=== PATIENT | male | born 1950 | race Caucasian/White ===

== ENCOUNTER 2017-12-01 08:55 | Day surgery (SDC) | payer OTHER ==
[~2017-12-01] VITALS: Ht 185.4 cm; Wt 152.0 kg
[~2017-12-01 08:55] MED LIST: CEFAZOLIN 2 GM IVPB PREMIX 50 ML IV ONE
[2017-12-01] MEDS ORDERED: MEPERIDINE HCL/PF 25 MG/ML DISP.SYRIN IVP PRN (10:45)
[2017-12-01] MEDS ORDERED: LABETALOL 100 MG/ 20ML VIAL IVP PRN (10:45)
[2017-12-01] MEDS ORDERED: MIDAZOLAM HCL 5 MG/5 ML VIAL IVP PRN (10:45)
[2017-12-01] MEDS ORDERED: ONDANSETRON HCL 4 MG/2 ML VIAL IVP ONE ×2 (10:45→10:50)
[2017-12-01] MEDS ORDERED: fentaNYL CITRATE/PF 100 MCG/2 ML AMP IVP PRN (10:45)
[2017-12-01] MEDS ORDERED: NALOXONE HCL 0.4 MG/ML AMP (NARCAN) IVP ONE (10:45)
[2017-12-01] MEDS ORDERED: HYDROmorphone 1 MG INJ. 1 MG/ML AMPUL IVP PRN (10:45)
[2017-12-01] MEDS ORDERED: LIDOCAINE 1% 10 MG/ML, 20 ML MDV INJ ONE (10:50)
[2017-12-01] MEDS ORDERED: MORPHINE SULFATE 10MG/10ML PF AMP EP ONE (10:50)
[2017-12-01] MEDS ORDERED: LR 1,000 ML IV.SOLN IV ONE (10:50)
[2017-12-01] MEDS ORDERED: EPINEPHrine 1 MG/ML AMP IV ONE (10:50)
[2017-12-01] MEDS ORDERED: BUPIVACAINE /PF 0.5% 30 ML VIAL INJ ONE (10:50)
[2017-12-01] MEDS ORDERED: PROPOFOL 200MG/ 20ML VIAL (DIPRIVAN) IV ONE (10:50)
[2017-12-01] MEDS ORDERED: DEXAMETHASONE SOD PHOSPHATE 4 MG/ML VIAL IVP ONE (10:50)
[2017-12-01] MEDS ORDERED: MIDAZOLAM HCL 5 MG/ML VIAL (VERSED) IV ONE (10:50)
[2017-12-01] MEDS ORDERED: MEPERIDINE HCL/PF 100 MG/ML AMP IM ONE (10:50)
[2017-12-01] MEDS ORDERED: fentaNYL CITRATE 250 MCG/5 ML AMP IV ONE (10:50)
[2017-12-01] MEDS ORDERED: NS IRRIG SOLN 1000 ML IR ONE (10:50)
[2017-12-01] MEDS ORDERED: SEVOFLURANE 15 MIN GAS INH ONE (10:50)
[2017-12-01] MEDS ORDERED: NACL 0.9% 1,000 ML IV SCH (10:59)
[2017-12-01] MEDS ORDERED: HYDROcodone/ACETAMIN 5-325 MG TAB (NORCO/ VICODIN) PO PRN (11:00)
[2017-12-01] MEDS ORDERED: MORPHINE SULFATE 10 MG/ML VIAL IVP PRN (11:00)
[2017-12-01] MEDS ORDERED: DIPHENHYDRAMINE HCL 25 MG CAPSULE PO PRN (11:00)
[2017-12-01] MEDS ORDERED: ACETAMINOPHEN 325 MG TABLET PO PRN (11:00)
[2017-12-01] MEDS ORDERED: MEPERIDINE HCL/PF 25 MG/ML DISP.SYRIN ONE (11:15)
[2017-12-01] MEDS ORDERED: MEPERIDINE HCL/PF 25 MG/ML DISP.SYRIN IVP ONE (11:20)
[2017-12-01 12:30] VITALS: BP_SYST 117
== END 2017-12-01 13:10 | disposition home or self-care (01) ==
LOC: SDS 08:55 → SMU 08:55 → SDS 13:10
PROVIDERS: ATTEND Orthopaedic Surgery
DX: M23.221 Derangement of posterior horn of medial meniscus due to old tear or injury, right knee (principal); M23.200 Derangement of unspecified lateral meniscus due to old tear or injury, right knee; M94.261 Chondromalacia, right knee; Z79.899 Other long term (current) drug therapy; Z79.4 Long term (current) use of insulin; E11.9 Type 2 diabetes mellitus without complications; I10 Essential (primary) hypertension; E66.01 Morbid (severe) obesity due to excess calories; Z68.41 Body mass index [BMI] 40.0-44.9, adult
CPT/HCPCS: 82948; 82962; C1887; J0171; J0690; J1100; J2001; J2175; J2250; J2274; J2405; J2704; J3010; J3490; J7120

== ENCOUNTER 2018-09-08 13:50 | Emergency (ER) | payer OTHER ==
[~2018-09-08] VITALS: Ht 185.4 cm; Wt 131.5 kg
[2018-09-08 13:54] VITALS: BP_SYST 109
[2018-09-08] MEDS ORDERED: KETOROLAC TROMETHAMINE 60 MG/2 ML VIAL IM ONE (14:15)
[2018-09-08 15:05] VITALS: BP_SYST 105
== END 2018-09-08 15:05 | disposition home or self-care (01) ==
LOC: SED 13:50
DX: M54.30 Sciatica, unspecified side (principal); E78.00 Pure hypercholesterolemia, unspecified; E11.9 Type 2 diabetes mellitus without complications; I10 Essential (primary) hypertension
CPT/HCPCS: 96372; 99283; J1885

== ENCOUNTER 2019-05-24 23:06 | Inpatient (IN) | payer OTHER ==
[~2019-05-24] VITALS: Ht 188 cm; Wt 137.2 kg
[2019-05-24 23:18] VITALS: BP_SYST 138
[2019-05-24] MEDS ORDERED: FURO20TA4 PO (23:40)
[2019-05-24] MEDS ORDERED: TAMS0.4C96 PO (23:40)
[2019-05-24] MEDS ORDERED: LOSA1TAB43 PO (23:40)
[2019-05-24] MEDS ORDERED: BUPR300T46 PO (23:40)
[2019-05-24] MEDS ORDERED: GABA600T PO (23:40)
[2019-05-24] MEDS ORDERED: POTA8TAB4 PO (23:40)
[2019-05-24] MEDS ORDERED: BACL10TA PO (23:40)
[2019-05-24] MEDS ORDERED: ROSU20TA PO (23:40)
[2019-05-24] MEDS ORDERED: ATOR20TA64 PO (23:40)
[2019-05-24] MEDS ORDERED: ATEN50TA PO (23:40)
[2019-05-25] MEDS ORDERED: NACL 0.9% 1,000 ML IV ONE
[2019-05-25] MEDS ORDERED: MECLIZINE HCL 25 MG TABLET (ANITVERT) PO ONE
[2019-05-25 00:21] LABS: BASOPHILS # (AUTO) 0.1 K/uL (0.0-0.2); BASOPHILS % (AUTO) 0.8 % (0.0-2.0); EOSINOPHILS # (AUTO) 0.2 K/uL (0.0-0.4); EOSINOPHILS % (AUTO) 2.5 % (0.0-4.0); HEMATOCRIT 37.4 % (36-54); HEMOGLOBIN 12.4 g/dL (14.0-18.0); LYMPHOCYTES # (AUTO) 1.6 K/uL (1.0-5.5); LYMPHOCYTES % (AUTO) 18.7 % (20.5-51.5); MEAN CORPUSCULAR HEMOGLOBIN 29 pg (27-31); MEAN CORPUSCULAR HGB CONC 33 % (32-36); MEAN CORPUSCULAR VOLUME 86 fL (79.0-98.0); MONOCYTES # (AUTO) 0.6 K/uL (0.0-1.0); MONOCYTES % (AUTO) 7.5 % (1.7-9.3); NEUTROPHILS % (AUTO) 70.5 % (40.0-70.0); PLATELET COUNT (AUTO) 219 K/uL (130-430); RED BLOOD CELL COUNT(AUTO) 4.34 MIL/uL (4.2-6.2); RED CELL DISTRIBUTION WIDTH 13.6 % (9.0-15.0); WHITE BLOOD COUNT (AUTO) 8.5 K/uL (4.8-10.8)
[2019-05-25 00:30] LABS: CALCIUM 8.9 mg/dL (8.4-11.0); CREATININE 1.47 mg/dL (0.55-1.30); POTASSIUM 5.4 mmol/L (3.5-5.1)
[2019-05-25 00:44] LABS: ALBUMIN 3.2 g/dL (3.4-4.8); THYROID STIMULATING HORMONE 1.01 uIu/mL (0.36-3.74); TOTAL BILIRUBIN 0.3 mg/dL (0.0-1.0)
[2019-05-25 01:43] LABS: BILIRUBIN,URINE NEGATIVE (NEGATIVE); BLOOD, URINE NEGATIVE (NEGATIVE); CLARITY/URINE CLEAR (CLEAR); COLOR,URINE YELLOW (YELLOW); GLUCOSE,URINE 2+ (NEGATIVE); KETONES,URINE NEGATIVE (NEGATIVE); LEUKOCYTE ESTERASE ,URINE NEGATIVE (NEGATIVE); NITRITE, URINE POSITIVE (NEGATIVE); PH,URINE 5.5 (5.0-8.0); PROTEIN URINE TRACE (NEGATIVE); UROBILINOGEN,URINE 0.2 (0.2-1.0)
[2019-05-25 01:52] LABS: BACTERIA,URINE MANY /HPF (None Seen); RBC,URINE 0-3 /HPF (0-3)
[2019-05-25 01:53] LABS: BARBITURATE, URINE NEGATIVE (NEG <=200); BENZODIAZEPINE, URINE NEGATIVE (NEG <=150); CANNABINOID, URINE NEGATIVE (NEG <=50); COCAINE, URINE NEGATIVE (NEG <=150); METHAMPHETAMINES SCREEN,URINE NEGATIVE (NEG <=500); OPIATE, URINE NEGATIVE (NEG <=100); PHENCYCLIDINE SCREEN,URINE NEGATIVE (NEG <=25); UR TRICYCLIC ANTIDEPRESSANTS NEGATIVE (NEG <=300); URINE AMPHETAMINE NEGATIVE (NEG <=500); URINE METHADONE NEGATIVE (NEG <=200); URINE OXYCODONE SCREEN NEGATIVE (NEG <=100); URINE PROPOXYPHENE SCREEN NEGATIVE (NEG <=300)
[2019-05-25] MEDS ORDERED: cefTRIAXone 1 GM in D5W 50 ML IV ONE (02:15)
[2019-05-25] MEDS ORDERED: ACETAMINOPHEN 325 MG TABLET PO PRN (02:15)
[2019-05-25] MEDS ORDERED: ONDANSETRON HCL 4 MG/2 ML VIAL IVP PRN (02:15)
[2019-05-25] MEDS ORDERED: SODIUM POLYSTYRENE SULFONATE 15 GM/60 ML UDBTL PO ONE ×2 (02:15)
[2019-05-25 03:13] VITALS: BP_SYST 127
[2019-05-25] MEDS ORDERED: SODIUM POLYSTYRENE SULFONATE 15 GM/60 ML UDBTL PO SCH (03:15)
[2019-05-25] MEDS: cefTRIAXone 1 GM in D5W 50 ML IV SCH ×2 (03:31→09:46)
[2019-05-25] MEDS ORDERED: cefTRIAXone 1 GM IVPB PREMIX 50 ML IV ONE (03:35)
[2019-05-25 06:19] LABS: BASOPHILS # (AUTO) 0.1 K/uL (0.0-0.2); BASOPHILS % (AUTO) 0.7 % (0.0-2.0); EOSINOPHILS # (AUTO) 0.2 K/uL (0.0-0.4); EOSINOPHILS % (AUTO) 2.6 % (0.0-4.0); HEMATOCRIT 34.6 % (36-54); HEMOGLOBIN 11.5 g/dL (14.0-18.0); LYMPHOCYTES # (AUTO) 2.5 K/uL (1.0-5.5); LYMPHOCYTES % (AUTO) 28.9 % (20.5-51.5); MEAN CORPUSCULAR HEMOGLOBIN 29 pg (27-31); MEAN CORPUSCULAR HGB CONC 33 % (32-36); MEAN CORPUSCULAR VOLUME 87 fL (79.0-98.0); MONOCYTES # (AUTO) 0.8 K/uL (0.0-1.0); MONOCYTES % (AUTO) 9.1 % (1.7-9.3); NEUTROPHILS % (AUTO) 58.7 % (40.0-70.0); PLATELET COUNT (AUTO) 201 K/uL (130-430); RED BLOOD CELL COUNT(AUTO) 3.98 MIL/uL (4.2-6.2); RED CELL DISTRIBUTION WIDTH 13.7 % (9.0-15.0); WHITE BLOOD COUNT (AUTO) 8.6 K/uL (4.8-10.8)
[2019-05-25 06:23] LABS: ALBUMIN 2.9 g/dL (3.4-4.8); CALCIUM 8.8 mg/dL (8.4-11.0); CREATININE 1.35 mg/dL (0.55-1.30); TOTAL BILIRUBIN 0.3 mg/dL (0.0-1.0)
[2019-05-25] MEDS: INSULIN REGULAR, HUMAN 100 UNITS/ML, 10 ML VIAL (humuLIN R) SUBCUT PRN ×4 (06:35→21:36)
[2019-05-25 07:56] VITALS: BP_SYST 126
[2019-05-25 07:59] VITALS: BP_SYST 126
[2019-05-25] MEDS ORDERED: ROSUVASTATIN CALCIUM 5 MG/TAB (CRESTOR) PO SCH (09:00)
[2019-05-25] MEDS ORDERED: cefTRIAXone 1 GM in D5W 50 ML IV SCH (09:00)
[2019-05-25] MEDS: GABAPENTIN 300 MG CAPSULE PO SCH ×3 (09:46→21:32)
[2019-05-25] MEDS: TAMSULOSIN HCL 0.4 MG CAP PO SCH ×2 (09:47→21:29)
[2019-05-25] MEDS: FUROSEMIDE 20 MG TABLET PO SCH ×2 (09:47→21:32)
[2019-05-25] MEDS: BACLOFEN 10 MG TABLET PO SCH ×4 (09:47→21:32)
[2019-05-25] MEDS: ATENOLOL 50 MG TABLET (TENORMIN) PO SCH (09:48)
[2019-05-25 11:23] VITALS: BP_SYST 132
[2019-05-25 15:10] VITALS: BP_SYST 127
[2019-05-25 19:45] VITALS: BP_SYST 136
[2019-05-25] MEDS ORDERED: ATORVASTATIN 20 MG TABLET PO SCH (21:00)
[2019-05-26 00:10] VITALS: BP_SYST 126
[2019-05-26 04:33] LABS: BASOPHILS % (AUTO) 0.6 % (0.0-2.0); EOSINOPHILS # (AUTO) 0.3 K/uL (0.0-0.4); EOSINOPHILS % (AUTO) 3.3 % (0.0-4.0); HEMATOCRIT 36.1 % (36-54); LYMPHOCYTES # (AUTO) 2.6 K/uL (1.0-5.5); LYMPHOCYTES % (AUTO) 30.8 % (20.5-51.5); MEAN CORPUSCULAR HEMOGLOBIN 29 pg (27-31); MEAN CORPUSCULAR HGB CONC 33 % (32-36); MEAN CORPUSCULAR VOLUME 87 fL (79.0-98.0); MONOCYTES # (AUTO) 0.7 K/uL (0.0-1.0); MONOCYTES % (AUTO) 8.3 % (1.7-9.3); NEUTROPHILS # (AUTO) 4.8 K/uL (1.8-7.7); PLATELET COUNT (AUTO) 208 K/uL (130-430); RED BLOOD CELL COUNT(AUTO) 4.17 MIL/uL (4.2-6.2); RED CELL DISTRIBUTION WIDTH 13.5 % (9.0-15.0); WHITE BLOOD COUNT (AUTO) 8.4 K/uL (4.8-10.8)
[2019-05-26 04:39] LABS: ALBUMIN 2.9 g/dL (3.4-4.8); CALCIUM 8.9 mg/dL (8.4-11.0); CREATININE 1.3 mg/dL (0.55-1.30); POTASSIUM 4.5 mmol/L (3.5-5.1); TOTAL BILIRUBIN 0.3 mg/dL (0.0-1.0)
[2019-05-26] MEDS: INSULIN REGULAR, HUMAN 100 UNITS/ML, 10 ML VIAL (humuLIN R) SUBCUT PRN ×2 (06:15→11:57)
[2019-05-26 07:45] VITALS: BP_SYST 130
[2019-05-26] MEDS ORDERED: ENOXAPARIN SODIUM 40 MG/0.4 ML SYRINGE SUBCUT SCH (09:00)
[2019-05-26] MEDS ORDERED: GLIMEPIRIDE 2 MG TABLET PO SCH (09:00)
[2019-05-26] MEDS: TAMSULOSIN HCL 0.4 MG CAP PO SCH (09:14)
[2019-05-26] MEDS: ATENOLOL 50 MG TABLET (TENORMIN) PO SCH (09:15)
[2019-05-26] MEDS: FUROSEMIDE 20 MG TABLET PO SCH (09:15)
[2019-05-26] MEDS: GABAPENTIN 300 MG CAPSULE PO SCH (09:15)
[2019-05-26] MEDS: BACLOFEN 10 MG TABLET PO SCH ×2 (09:15→14:07)
[2019-05-26] MEDS: cefTRIAXone 1 GM in D5W 50 ML IV SCH (09:17)
[2019-05-26] MEDS ORDERED: CEPH-568 PO (11:12)
[2019-05-26] MEDS ORDERED: MECL12.584 PO (11:14)
[2019-05-26 11:19] VITALS: BP_SYST 114; BP_SYST 130
== END 2019-05-26 14:35 | disposition home or self-care (01) | DRG 690 ==
LOC: SED 23:06 → STU 05-25 02:13
PROVIDERS: ADMIT Internal Medicine; ATTEND Internal Medicine
DX: N39.0 Urinary tract infection, site not specified (principal); E86.0 Dehydration; H83.09 Labyrinthitis, unspecified ear; E11.40 Type 2 diabetes mellitus with diabetic neuropathy, unspecified; I10 Essential (primary) hypertension; N28.9 Disorder of kidney and ureter, unspecified; E87.5 Hyperkalemia; E11.65 Type 2 diabetes mellitus with hyperglycemia; N40.1 Benign prostatic hyperplasia with lower urinary tract symptoms; E66.01 Morbid (severe) obesity due to excess calories; G47.30 Sleep apnea, unspecified; F32.9 Major depressive disorder, single episode, unspecified; G89.29 Other chronic pain; M54.2 Cervicalgia; M54.9 Dorsalgia, unspecified; Z68.38 Body mass index [BMI] 38.0-38.9, adult; Z79.899 Other long term (current) drug therapy
CPT/HCPCS: 36415; 70450-TC; 72040-TC; 80053; 80307; 81000-TC; 82550-TC; 82962; 83036; 83605; 84443-TC; 84484; 85025; 85651-TC; 87040-TC; 87086; 93880; 96360; 97116-GP; 97530-GP; 99285; G0378; J0696; J1650; J1815; J7060; J8597

== ENCOUNTER 2022-11-08 10:05 | Inpatient (IN) | payer OTHER ==
[~2022-11-08] VITALS: Ht 185.4 cm; Wt 132.4 kg
[~2022-11-08 10:05] MED LIST changes: +ATEN50TA PO; +BACL10TA PO; +BUPR300T46 PO; -CEFAZOLIN 2 GM IVPB PREMIX 50 ML IV ONE; +CEPH-568 PO; +FURO20TA4 PO; +GABA600T PO; +LOSA1TAB43 PO; +MECL-225 PO; +POTA8TAB66 PO; +ROSU20TA2 PO; +TAMS0.4C96 PO
--- NOTE | 2022-11-08 10:15 | NUR ---
Placed in room 06 . Placed on awake overnight monitor, blood pressure machine and pulse oximeter. To gown for exam. Side rails up. Report given to AMARA MUNIZ.
[2022-11-08 10:16] VITALS: BP_SYST 130
--- NOTE | 2022-11-08 10:20 | NUR ---
ER DR. COBB AT THE BEDSIDE EXAMINING PT
[2022-11-08 10:49] LABS: BASOPHILS % (AUTO) 0.5 % (0.0-2.0); EOSINOPHILS # (AUTO) 0.2 K/uL (0.0-0.4); EOSINOPHILS % (AUTO) 3.3 % (0.0-4.0); HEMATOCRIT 36.9 % (36-54); HEMOGLOBIN 11.9 g/dL (14.0-18.0); LYMPHOCYTES # (AUTO) 1.5 K/uL (1.0-5.5); LYMPHOCYTES % (AUTO) 23.2 % (20.5-51.5); MEAN CORPUSCULAR HEMOGLOBIN 29 pg (27-31); MEAN CORPUSCULAR HGB CONC 32 % (32-36); MEAN CORPUSCULAR VOLUME 91 fL (79.0-98.0); MONOCYTES # (AUTO) 0.5 K/uL (0.0-1.0); MONOCYTES % (AUTO) 8.7 % (1.7-9.3); NEUTROPHILS % (AUTO) 64.3 % (40.0-70.0); PLATELET COUNT (AUTO) 195 K/uL (130-430); RED BLOOD CELL COUNT(AUTO) 4.05 MIL/uL (4.2-6.2); RED CELL DISTRIBUTION WIDTH 14.5 % (9.0-15.0); WHITE BLOOD COUNT (AUTO) 6.3 K/uL (4.8-10.8)
[2022-11-08 11:01] LABS: ANION GAP 5 (5-15); CALCIUM 8.6 mg/dL (8.4-11.0); CHLORIDE 104 mmol/L (98-107); CREATININE 1.85 mg/dL (0.55-1.30); GLUCOSE 336 mg/dL (70-99); UREA NITROGEN, BLOOD 53 mg/dL (8-21)
[2022-11-08 11:08] LABS: INR 0.9 (0.80-1.20); PROTHROMBIN TIME 9.5 SECS (9.5-12.5)
[2022-11-08 11:15] LABS: ALANINE AMINOTRANSFERASE 38 U/L (12-78); ALBUMIN 3.3 g/dL (3.4-4.8); ASPARTATE AMINOTRANSFERASE 19 U/L (10-37); FREE T4 (FREE THYROXINE) 0.7 ng/dL (0.6-1.6); THYROID STIMULATING HORMONE 1.29 uIu/mL (0.34-4.82); TOTAL BILIRUBIN 0.3 mg/dL (0.0-1.0)
--- NOTE | 2022-11-08 11:30 | NUR ---
PATIENT AMBULATED TO ER WITH FAMILY, PT C/O GEN WEAKNESS THAT STARTED OVER A MONTH AGO. PT AOX4 GCS 15 LUNGS CLEAR NO NOTED EDMEMA NOT IN RESPIRATORY DISTRESS. PT RESTING COMFORTABLY AT BEDSIDE.
[2022-11-08] MEDS ORDERED: NACL 0.9% 2,000 ML IV ONE (13:15)
[2022-11-08] MEDS ORDERED: SODIUM POLYSTYRENE SULFONATE 15 GM/60 ML UDBTL PO ONE (13:15)
[2022-11-08 14:08] LABS: BARBITURATE, URINE NEGATIVE (NEG <=200); BENZODIAZEPINE, URINE NEGATIVE (NEG <=150); CANNABINOID, URINE NEGATIVE (NEG <=50); COCAINE, URINE NEGATIVE (NEG <=150); METHAMPHETAMINES SCREEN,URINE NEGATIVE (NEG <=500); OPIATE, URINE POSITIVE (NEG <=100); PHENCYCLIDINE SCREEN,URINE NEGATIVE (NEG <=25); UR TRICYCLIC ANTIDEPRESSANTS NEGATIVE (NEG <=300); URINE AMPHETAMINE NEGATIVE (NEG <=500); URINE METHADONE NEGATIVE (NEG <=200); URINE OXYCODONE SCREEN NEGATIVE (NEG <=100); URINE PROPOXYPHENE SCREEN NEGATIVE (NEG <=300)
--- NOTE | 2022-11-08 15:38 | NUR ---
COVID SWAB OBTAINED AND SENT TO LAB.
[2022-11-08] MEDS: traMADol HCL HCL 50 MG TABLET (ULTRAM) PO SCH (17:53)
[2022-11-08] MEDS ORDERED: traMADol HCL HCL 50 MG TABLET (ULTRAM) ONE (17:54)
[2022-11-08] MEDS ORDERED: ALLO100T PO (18:22)
[2022-11-08] MEDS ORDERED: AMLO5TAB4 PO (18:25)
[2022-11-08] MEDS ORDERED: ASPI-1155 PO (18:25)
[2022-11-08] MEDS ORDERED: SODI5POW2 PO (18:34)
[2022-11-08] MEDS ORDERED: BETA1TAB20 PO (18:34)
[2022-11-08] MEDS ORDERED: INSU100V9 SQ (18:34)
[2022-11-08] MEDS ORDERED: INSU100V8 SQ (18:34)
[2022-11-08] MEDS ORDERED: GABA-331 PO (18:34)
[2022-11-08] MEDS ORDERED: DULO60CA42 PO (18:34)
[2022-11-08] MEDS ORDERED: CELE200C PO (18:34)
--- NOTE | 2022-11-08 19:18 | NUR ---
Received report at this time. Pt presently on monitor. No needs expressed.
--- NOTE | 2022-11-08 21:00 | NUR ---
Patient will be admitted to care of [facility] Navarro . Admitted to tele unit. Will go to room 114 B. Belongings list completed. Complete and up to date summary report printed. SBAR report given to AMARA Tsai. bedside with opportunity for questions.
[2022-11-08 21:47] VITALS: BP_SYST 141
[2022-11-09] VITALS (8 sets, daily range): BP systolic 135–141
--- NOTE | 2022-11-09 01:00 | NUR ---
RECEIVED PT FROM ED. NO DISTRESS NOTED. DENIES PAIN. HAS SOME DISCOMFORT TO RT SHOULDER. AAOX4. O2 SAT 95% ON RA. DENIES NUMBNESS, TINGLING TO EXTREMITIES. SCAB AND REDNESS NOTED TO RT LEG. NO SKIN INJURY NOTED. URINE SPECIMEN SENT. AMBULATED TO RESTROOM, GAIT STEADY. PT STATES HE FEELS IF HIS KNEES ARE GOING TO BUCKLE
--- NOTE | 2022-11-09 04:50 | NUR ---
CONSULTATION PAGED REASON FOR CONSULTATION: SUNDAR WAS CONSULT CALLED? YES PERSON WHO WAS NOTIFIED: SHANKAR CONSULTING PHYSICIAN: SEBASTIAN WAGNER PROPOSAL CONSULTANT SPECIALTY: NEPHROLOGY PROPOSAL CONSULTANT PHONE NUMBER: [phone] REQUESTING PHYSICIAN: INOCENCIA
[2022-11-09 06:15] LABS: BASOPHILS % (AUTO) 0.7 % (0.0-2.0); EOSINOPHILS # (AUTO) 0.2 K/uL (0.0-0.4); EOSINOPHILS % (AUTO) 3.3 % (0.0-4.0); HEMOGLOBIN 12.6 g/dL (14.0-18.0); LYMPHOCYTES # (AUTO) 2.2 K/uL (1.0-5.5); LYMPHOCYTES % (AUTO) 29.7 % (20.5-51.5); MEAN CORPUSCULAR HEMOGLOBIN 30 pg (27-31); MEAN CORPUSCULAR HGB CONC 33 % (32-36); MEAN CORPUSCULAR VOLUME 90 fL (79.0-98.0); MONOCYTES # (AUTO) 0.6 K/uL (0.0-1.0); MONOCYTES % (AUTO) 7.4 % (1.7-9.3); NEUTROPHILS # (AUTO) 4.4 K/uL (1.8-7.7); NEUTROPHILS % (AUTO) 58.9 % (40.0-70.0); PLATELET COUNT (AUTO) 212 K/uL (130-430); RED BLOOD CELL COUNT(AUTO) 4.22 MIL/uL (4.2-6.2); RED CELL DISTRIBUTION WIDTH 14.7 % (9.0-15.0); WHITE BLOOD COUNT (AUTO) 7.5 K/uL (4.8-10.8)
[2022-11-09 06:55] LABS: ALANINE AMINOTRANSFERASE 36 U/L (12-78); ALBUMIN 3.2 g/dL (3.4-4.8); ANION GAP 6 (5-15); ASPARTATE AMINOTRANSFERASE 22 U/L (10-37); CALCIUM 8.9 mg/dL (8.4-11.0); CHLORIDE 107 mmol/L (98-107); GLUCOSE 191 mg/dL (70-99); PHOSPHORUS 3.9 mg/dL (2.7-4.5); TOTAL BILIRUBIN 0.4 mg/dL (0.0-1.0); UREA NITROGEN, BLOOD 37 mg/dL (8-21)
--- NOTE | 2022-11-09 07:00 | NUR ---
PT C/O RT SHOULDER PAIN. NO PRN PAIN MEDICATIONS ORDERED. LEFT MESSAGE WITH EXCHANGE SPOKE TO
[2022-11-09] MEDS ORDERED: D5W 1,000 ML IV PRN (08:00)
[2022-11-09] MEDS ORDERED: GLUCOSE (DEXTROSE) ORAL GEL -Adults PO PRN (08:00)
[2022-11-09] MEDS ORDERED: DEXTROSE 50%-WATER 50 ML DISP.SYRIN IVP PRN (08:00)
[2022-11-09] MEDS: HYDROcodone/ACETAMIN 5-325 MG TAB (NORCO/ VICODIN) PO PRN ×3 (08:24→21:09)
[2022-11-09] MEDS: traMADol HCL HCL 50 MG TABLET (ULTRAM) PO SCH ×3 (09:00→21:00)
[2022-11-09] MEDS ORDERED: CELECOXIB 200 MG CAPSULE PO PRN (12:15)
[2022-11-09] MEDS ORDERED: FUROSEMIDE 20 MG TABLET PO ONE (12:45)
[2022-11-09] MEDS ORDERED: ALLOPURINOL 100 MG TABLET (ZYLOPRIM) PO ONE (12:45)
[2022-11-09] MEDS ORDERED: ASPIRIN 81 MG TAB.CHEW PO ONE (12:45)
[2022-11-09] MEDS ORDERED: ATENOLOL 50 MG TABLET (TENORMIN) PO ONE (12:45)
[2022-11-09] MEDS ORDERED: amLODIPine BESYLATE 5 MG TABLET PO ONE (12:45)
[2022-11-09] MEDS ORDERED: DULoxetine HCL 30 MG CAPSULE.DR (CYMBALTA) PO ONE (14:00)
--- NOTE | 2022-11-09 20:00 | NUR ---
RECEIVED PT FROM AM NURSE. NO DISTRESS NOTED. DENIES PAIN. HAS SOME DISCOMFORT TO RT SHOULDER. REQUEST IMAGING RESULTS. AAOX4. O2 SAT 95% ON RA. DENIES NUMBNESS, TINGLING TO EXTREMITIES. SCAB AND REDNESS NOTED TO RT LEG. NO SKIN INJURY NOTED. . AMBULATED TO RESTROOM, GAIT STEADY, WILL USE URINAL THROUGH THE NIGHT. PT HAS WALKER AT BEDSIDE. wILL CONTINUE TO MONITOR PT
[2022-11-09] MEDS: BETA-CAROTENE W-C & E/ZN/CU TABLET PO SCH (21:06)
[2022-11-09] MEDS: TAMSULOSIN HCL 0.4 MG CAP PO SCH (21:06)
[2022-11-09] MEDS: FUROSEMIDE 20 MG TABLET PO SCH (21:06)
[2022-11-09] MEDS: INSULIN GLARGINE 100 UNITS/ML, 10 ML VIAL SUBCUT SCH (21:10)
[2022-11-10 00:17] VITALS: BP_SYST 140
[2022-11-10] MEDS: HYDROcodone/ACETAMIN 5-325 MG TAB (NORCO/ VICODIN) PO PRN (05:18)
[2022-11-10 08:00] VITALS: BP_SYST 132
[2022-11-10] MEDS ORDERED: ROSUVASTATIN CALCIUM 5 MG/TAB (CRESTOR) PO SCH (09:00)
--- NOTE | 2022-11-10 10:01 | NUR ---
CONSULT NEUROLOGY RADICULOPATHY DR JUÁREZ.DEXTER SENT TEXT TO DR JUÁREZ
[2022-11-10] MEDS: ASPIRIN 81 MG TAB.CHEW PO SCH (10:15)
[2022-11-10] MEDS: BETA-CAROTENE W-C & E/ZN/CU TABLET PO SCH ×2 (10:15→21:45)
[2022-11-10] MEDS: ATORVASTATIN 20 MG TABLET PO SCH (10:16)
[2022-11-10] MEDS: ALLOPURINOL 100 MG TABLET (ZYLOPRIM) PO SCH (10:16)
[2022-11-10] MEDS: ATENOLOL 50 MG TABLET (TENORMIN) PO SCH (10:17)
[2022-11-10] MEDS: DULoxetine HCL 30 MG CAPSULE.DR (CYMBALTA) PO SCH (10:17)
[2022-11-10] MEDS: TAMSULOSIN HCL 0.4 MG CAP PO SCH ×2 (10:18→21:45)
[2022-11-10] MEDS: FUROSEMIDE 20 MG TABLET PO SCH ×2 (10:18→21:45)
[2022-11-10] MEDS: amLODIPine BESYLATE 5 MG TABLET PO SCH (10:19)
[2022-11-10] MEDS: traMADol HCL HCL 50 MG TABLET (ULTRAM) PO SCH ×3 (10:23→21:45)
[2022-11-10] MEDS: INSULIN REGULAR, HUMAN 100 UNITS/ML, 3 ML VIAL (humuLIN R) SUBCUT PRN ×2 (12:06→17:53)
[2022-11-10 12:28] LABS: CREATININE, URINE 42.9 mg/dL; MICROALBUMIN URINE RANDOM 29.2 ug/ml (NOT ESTABLISHED)
[2022-11-10 12:54] VITALS: BP_SYST 141
[2022-11-10 16:50] VITALS: BP_SYST 138
--- NOTE | 2022-11-10 20:00 | NUR ---
RECEIVED PT FROM AM NURSE. NO DISTRESS NOTED. DENIES PAIN. HAS SOME DISCOMFORT TO RT WRIST. REQUEST IMAGING RESULTS. AAOX4. O2 SAT 95% ON RA. DENIES NUMBNESS, TINGLING TO EXTREMITIES. SCAB AND REDNESS NOTED TO RT LEG. NO SKIN INJURY NOTED. . AMBULATED TO RESTROOM WITH WALKER, GAIT STEADY, WILL USE URINAL THROUGH THE NIGHT. BED LOCKED AT LOWEST POSITION.CALL LIGHT IN REACH
[2022-11-10 20:24] VITALS: BP_SYST 132
[2022-11-10 20:27] VITALS: BP_SYST 136
[2022-11-10] MEDS: INSULIN GLARGINE 100 UNITS/ML, 10 ML VIAL SUBCUT SCH (21:44)
[2022-11-11 00:32] VITALS: BP_SYST 129
[2022-11-11] MEDS: HYDROcodone/ACETAMIN 5-325 MG TAB (NORCO/ VICODIN) PO PRN (05:22)
[2022-11-11] MEDS: INSULIN REGULAR, HUMAN 100 UNITS/ML, 3 ML VIAL (humuLIN R) SUBCUT PRN (05:23)
--- NOTE | 2022-11-11 08:10 | NUR ---
Patient received awake and alert, able to communicate needs. On tele. No edema noted. Received patient on room air, tolerating well. Patient is continent gi/gu. Patient is ambulatory with FWW. Patient denies pain at this time. IV to left AC, patent and flushing. Skin intact.
[2022-11-11] MEDS: BETA-CAROTENE W-C & E/ZN/CU TABLET PO SCH (09:00)
[2022-11-11] MEDS: DULoxetine HCL 30 MG CAPSULE.DR (CYMBALTA) PO SCH (09:47)
[2022-11-11] MEDS: ALLOPURINOL 100 MG TABLET (ZYLOPRIM) PO SCH (09:47)
[2022-11-11] MEDS: ATENOLOL 50 MG TABLET (TENORMIN) PO SCH (09:48)
[2022-11-11] MEDS: FUROSEMIDE 20 MG TABLET PO SCH (09:49)
[2022-11-11] MEDS: amLODIPine BESYLATE 5 MG TABLET PO SCH (09:49)
[2022-11-11] MEDS: traMADol HCL HCL 50 MG TABLET (ULTRAM) PO SCH (09:49)
[2022-11-11] MEDS: ASPIRIN 81 MG TAB.CHEW PO SCH (09:49)
[2022-11-11] MEDS: TAMSULOSIN HCL 0.4 MG CAP PO SCH (09:49)
[2022-11-11] MEDS: ATORVASTATIN 20 MG TABLET PO SCH (10:00)
[2022-11-11 10:52] VITALS: BP_SYST 137
[2022-11-11 11:52] VITALS: BP_SYST 128
--- NOTE | 2022-11-11 13:00 | NUR ---
Patient discharge packet discussed with patient at bedside. Discussed follow up care, continued/stopped medications, diet/ activity recommendations, and addressed all questions and concerns. discussed what s/sx to monitor for that may warrant a return to ER. Iv removed with catheter intact. Denies pain at discharge. id wrist band cut off. Patient picked up by daughter in private auto.
== END 2022-11-11 13:00 | disposition home health service (06) | DRG 73 ==
LOC: SED 10:05 → STU 15:40
PROVIDERS: ADMIT Specialist; ATTEND Specialist
DX: M54.12 Radiculopathy, cervical region (principal); N17.0 Acute kidney failure with tubular necrosis; I13.0 Hypertensive heart and chronic kidney disease with heart failure and stage 1 through stage 4 chronic kidney disease, or unspecified chronic kidney disease; E11.40 Type 2 diabetes mellitus with diabetic neuropathy, unspecified; E11.22 Type 2 diabetes mellitus with diabetic chronic kidney disease; E78.5 Hyperlipidemia, unspecified; Z20.822 Contact with and (suspected) exposure to COVID-19; E11.319 Type 2 diabetes mellitus with unspecified diabetic retinopathy without macular edema; E87.5 Hyperkalemia; I50.9 Heart failure, unspecified; N18.32 Chronic kidney disease, stage 3b
CPT/HCPCS: 36415; 71045; 72141; 73030; 76770; 80053; 80307; 82043; 82550; 82570; 83036; 83735; 83880; 83935; 84100; 84302; 84439; 84443; 84484; 85025; 85610-TC; 85730-TC; 93005; 99285; G0378; J1815